=== PATIENT | female | born 1980 | race Caucasian/White ===

== ENCOUNTER 2020-04-12 21:35 | Emergency (ER) | payer OTHER ==
[2020-04-12] MEDS ORDERED: Diphtheria,Pertussis(Acell),Tetanus Vaccine 0.5 ML SDV IM ONE (21:56)
[2020-04-12] MEDS ORDERED: Bacitracin Oint 1 GM U/D Packet TOP ONE (22:11)
--- NOTE | 2020-04-12 22:17 | EDM.PDOC ---
ED HPI GENERAL MEDICAL PROBLEM - General Chief Complaint: Laceration Stated Complaint: FISH HOOK RT MIDDLE FINGER Time Seen by Provider: 04/12/20 22:00 Source of Information: Reports: Patient History Limitations: Reports: No Limitations - History of Present Illness INITIAL COMMENTS - FREE TEXT/NARRATIVE: 39 yo female here with a fish hook in her R long finger. Here for evaluation. Tetanus is UTD. 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: Social & Family History - Family History Family Medical History: Noncontributory - Tobacco Use Smoking Status *Q: Never Smoker - Alcohol Use Days Per Week of Alcohol Use: 2 Number of Drinks Per Day: 5 Total Drinks Per Week: 10 - Recreational Drug Use Recreational Drug Use: No ED ROS GENERAL - Review of Systems Review Of Systems: See Below Constitutional: Reports: No Symptoms Skin: Reports: Wound (puncture of finger tip) Neurological: Reports: No Symptoms ED EXAM, SKIN/RASH Exam: See Below Exam Limited By: No Limitations General Appearance: Alert, WD/WN, No Apparent Distress Neurological: Alert, Oriented, CN II-XII Intact, Normal Cognition, No Motor/Sensory Deficits Psychiatric: Normal Affect, Normal Mood Skin: Warm, Dry, Normal Color, No Rash, Wound/Incision (fish hook selina in distal R long finger tip) Location, Skin: Upper Extremity, Right Characteristics: Other (puncture) Associated features: Tenderness ED SKIN PROCEDURES - Foreign Body Removal Performing Doctor:: Josh Haas Foreign Body Other Location Comment:: R index finger tip Anesthesia Type: Local (0.5 ml of .5 % bupivacaine with epi locally) Complications:: No Comments:: covered selina with an 18 g needle and backed it out. Course - Vital Signs Last Recorded V/S: Last Vital Signs Temp 36.7 C 04/12/20 22:00 Pulse 99 04/12/20 22:00 Resp 16 04/12/20 22:00 BP 131/87 04/12/20 22:00 Pulse Ox 96 04/12/20 22:00 - Orders/Labs/Meds Orders: Active Orders 24 hr Category Date Time Status Vaccines to be Administered [RC] PER UNIT ROUTINE Care 04/12/20 21:56 Active Bacitracin [Bacitracin Oint 1 GM] Med 04/12/20 22:11 Once 1 dose TOP ONETIME ONE Meds: Medications Discontinued Medications Generic Name Dose Route Start Last Admin Trade Name Manuela PRN Reason Stop Dose Admin Bacitracin 1 dose 04/12/20 22:11 Bacitracin Oint 1 Gm TOP 04/12/20 22:12 ONETIME ONE Diphtheria/Tetanus/Acell Pertussis 0.5 ml 04/12/20 21:56 Adacel IM 04/12/20 21:57 .ONCE ONE Departure - Departure Time of Disposition: 22:16 Disposition: Home, Self-Care 01 Condition: Good Clinical Impression: Fish hook injury of finger of right hand Qualifiers: Encounter type: initial encounter Qualified Code(s): S69.91XA - Unspecified injury of right wrist, hand and finger(s), initial encounter - Discharge Information *PRESCRIPTION DRUG MONITORING PROGRAM REVIEWED*: No *COPY OF PRESCRIPTION DRUG MONITORING REPORT IN PATIENT IRWIN: No Instructions: Puncture Wound, [id number] Referrals: PCP,None [Primary Care Provider] - Forms: ED Department Discharge Additional Instructions: Clean wound twice daily with soap and water. Dry. Apply antibiotic ointment and a new dressing. Recheck for signs of infection. Sepsis Event Note (ED) - Evaluation Sepsis Screening Result: No Definite Risk - Focused Exam Vital Signs: Vital Signs Temp Pulse Resp BP Pulse Ox 04/12/20 22:00 36.7 C 99 16 131/87 96 04/12/20 21:52 36.7 C 99 16 131/87 96 - My Orders Last 24 Hours: My Active Orders 04/12/20 21:56 Vaccines to be Administered [RC] PER UNIT ROUTINE 04/12/20 22:11 Bacitracin [Bacitracin Oint 1 GM] 1 dose TOP ONETIME ONE - Assessment/Plan Last 24 Hours: My Active Orders 04/12/20 21:56 Vaccines to be Administered [RC] PER UNIT ROUTINE 04/12/20 22:11 Bacitracin [Bacitracin Oint 1 GM] 1 dose TOP ONETIME ONE
== END 2020-04-12 22:37 | disposition home or self-care (01) ==
LOC: JP.ED 21:35
DX: S60.452A Superficial foreign body of right middle finger, initial encounter (principal); W45.8XXA Other foreign body or object entering through skin, initial encounter
CPT/HCPCS: 99282

== ENCOUNTER 2023-05-08 00:33 | Emergency (ER) | payer OTHER ==
[2023-05-08] MEDS: Lidocaine 1% 5 ML VIAL INJECT ONE (00:57)
[2023-05-08] MEDS: Bacitracin Oint 1 GM U/D Packet TOP ONE (00:57)
== END 2023-05-08 01:35 | disposition home or self-care (01) ==
LOC: JP.ED 00:33
DX: S91.311A Laceration without foreign body, right foot, initial encounter (principal); Z87.891 Personal history of nicotine dependence; Z86.16 Personal history of COVID-19; W25.XXXA Contact with sharp glass, initial encounter
CPT/HCPCS: 12002; 99282